=== PATIENT | female | born 1985 | race Caucasian/White ===

== ENCOUNTER 2017-01-26 00:01 | Outpatient (CLI) | payer OTHER ==
[2017-01-26 00:18] VITALS: BP 110/62
== END 2017-01-26 02:23 | disposition home or self-care (01) ==
LOC: TRG 00:01
PROVIDERS: ATTEND Obstetrics & Gynecology
DX: O47.9 False labor, unspecified (principal); Z3A.00 Weeks of gestation of pregnancy not specified
CPT/HCPCS: 59025

== ENCOUNTER 2017-02-09 01:20 | Outpatient (CLI) | payer SELFPAY ==
[2017-02-09 01:56] VITALS: BP 100/55
== END 2017-02-09 02:54 | disposition home or self-care (01) ==
LOC: TRG 01:20
PROVIDERS: ATTEND Obstetrics & Gynecology
DX: O47.00 False labor before 37 completed weeks of gestation, unspecified trimester (principal); Z3A.00 Weeks of gestation of pregnancy not specified
CPT/HCPCS: 59025